=== PATIENT | female | born 1955 | race Caucasian/White ===

== ENCOUNTER → 2018-12-16 08:43 | Outpatient (POV) | payer SELFPAY | PROVIDERS: PCP Dermatology; Visit Provider Dermatology | DX: Z00.00 Encounter for general adult medical examination without abnormal findings (principal) ==

== ENCOUNTER → 2020-01-07 07:52 | Outpatient (CLI) | payer MEDICAID, SELFPAY ==
--- NOTE | 2020-01-07 07:57 | MM_ITS ---
PROCEDURE: MM DIG SCREENING MAMM BI W/CAD Referring Doctor: Liam Sanches Patient Age:64Y CLINICAL INDICATION: SCREENING routine screening mammogram. No hormones. No new complaints. Family history: Mother with breast cancer. Sister x2 breast cancer. Paternal grandmother COMPARISON: No exams were available for comparison TECHNIQUE: Standard CC and MLO images were obtained. R2 CAD reviewed. Bilateral digital breast tomosynthesis included. FINDINGS: Moderate density heterogeneous breast with no prior studies for comparison currently. Slightly denser areas of breast noted superiorly particular on the left . Right breast: Area labeled A: Crush stone appearing calcifications at central breast towards 12 o'clock. This area is labeled A These may be benign fibrocystic calcifications but would benefit from spot view since the prior films from [facility] not become available for comparison Area labeled B: Innumerable tiny fairly singular punctate calcifications scattered throughout fairly large region lateral right breast-the these most likely reflect adenosis... These require enlarging image significantly to appreciate the numerous tiny fainter calcifications that extend posteriorly I recommend patient return for magnification CC and 90 degree views of both areas. Left breast: On today's CC view noted a small focal area of density labeled X central breast towards 12 o'clock. It is somewhat elongated/linear on the CC tomosynthesis image 27. (Measuring just over 8 mm x 2.5 mm) it is not readily apparent on the MLO view thus tend to favor more likely overlapping shadow-but would benefit from spot views (cc and MLO spot views with full 90 degree view left breast) and ultrasound further evaluate when the patient returns IMPRESSION: RIGHT BREAST: Recommend additional magnification views of calcifications at areaA and B Area A: Grouping of crush stone calcification at 12 o'clock; possible fibrocystic calcification but warrant additional images due to some irregular forms Area/region B: Innumerable tiny faint singular calcifications throughout the lateral breast most likely reflect adenosis LEFT BREAST: Small focal area of density towards 12 o'clock on CC views, will benefit from ultrasound and spot views when the patient returns as well Again if the prior films from [place] become available we will be glad to compare them. They may be helpful to determine stability of these areas.. Cautious/diligent approach warranted in this patient with positive family history BI-RAD Category: 0 Need Additional Imaging Evaluation FOLLOW-UP: IMM Immediate Follow-up Recommended (A letter has been sent to the patient regarding results of the study.) Dictated by: Coleman Vasquez MD 01/25/2020 10:15 Coleman Vasquez MD in [place] 01/25/2020 10:15
--- NOTE | 2020-01-07 07:57 | XR_ITS ---
PROCEDURE: XR DEXA AXIAL SKELETON CLINICAL HISTORY: POST MENOPAUSAL COMPARISON: No exams were available for comparison FINDINGS: The right hip BMD is 0.600 with a T-score of -2.2. The left hip BMD is 0.651 with a T-score of -2.4. The lumbar spine BMD is 0.682 with a T-score of -3.3. IMPRESSION: This patient is considered osteoporotic according to the World Health Organization criteria. Fracture risk is high. Treatment is advised. Based on these results a follow-up exam is recommended in 1 year. Dictated by: Estiven Hooker MD 01/08/2020 05:44 Estiven Hooker MD in [place] 01/08/2020 05:44
== END ==
PROVIDERS: PCP Dermatology; Visit Provider Internal Medicine Adolescent Medicine
DX: Z12.31 Encounter for screening mammogram for malignant neoplasm of breast (principal); Z80.3 Family history of malignant neoplasm of breast; Z78.0 Asymptomatic menopausal state; Z13.820 Encounter for screening for osteoporosis
CPT/HCPCS: 77063; 77067; 77080

== ENCOUNTER → 2020-01-19 10:01 | Outpatient (CLI) | payer MEDICAID, SELFPAY ==
[2020-01-19 10:33] LABS: Basophils % 0.6 % (0.1-2.0); Hemoglobin 13.1 g/dL (12.2-16.2); Lymphocytes # 1.3 K/mm3 (0.7-4.5); Lymphocytes % 39.4 % (10-50); Mean Corpuscular HGB Conc 30.6 g/dL (31.8-35.4); Mean Corpuscular Hemoglobin 32.9 pg (27.0-31.2); Mean Corpuscular Volume 107.7 fl (81-99); Mean Platelet Volume 7.9 fl (7.4-10.4); Monocytes # 0.2 K/mm3 (0.1-1.0); Monocytes % 5.2 % (1.7-9.3); Neutrophils # 1.7 K/mm3 (1.8-7.8); Neutrophils % 53.6 % (37.0-80.0); Platelet Count 264 K/mm3 (142-424); Red Blood Count 3.99 M/mm3 (4.20-5.40); Red Cell Distribution Width 11.9 % (11.5-17.5); White Blood Count 3.2 K/mm3 (4.8-10.8)
[2020-01-19 11:08] LABS: Chloride 97 mmol/L (98-107); Potassium 4.3 mmoL/L (3.5-5.1); Sodium 133 mmol/L (136-145)
[2020-01-19 11:11] LABS: Alanine Aminotransferase 27 U/L (12-78); Albumin Level 4.7 g/dl (3.5-5.0); Albumin/Globulin Ratio 1.8 (1.1-1.8); Alkaline Phosphatase 109 U/L (38-126); Anion Gap 8.3 mEq/L (5-15); Aspartate Amino Transferase 46 U/L (14-36); Bilirubin,Total 0.4 mg/dl (0.2-1.3); Blood Urea Nitrogen 17 mg/dl (7-17); Calcium 10.1 mg/dl (8.4-10.2); Carbon Dioxide 32 mmol/L (22.0-30.0); Cholesterol 203 mg/dl (140-200); Estimated Glomerular Filt Rate 125 ml/min (>60); GFR (African American) 151 ML/MIN (>60); Globulin 2.6 g/dL (1.3-3.2); Glucose 97 mg/dl (74-100); Total Protein,Serum 7.3 g/dl (6.3-8.2); Triglycerides 102 mg/dl (30-150); VLDL Cholesterol 20 mg/dL (0-40)
[2020-01-19 11:12] LABS: Chol/HDL Ratio 2.3 (1-3.5); HDL Cholesterol 89 mg/dl (40-60)
[2020-01-19 11:23] LABS: Direct LDL Cholesterol 90.37 mg/dL (100-129)
[2020-01-19 11:42] LABS: Thyroid Stimulating Hormone 0.79 uIU/mL (0.465-4.68)
[2020-01-19 13:59] LABS: Hemoglobin A1C 4.6 % (4.0-6.0)
== END ==
PROVIDERS: Visit Provider Internal Medicine Adolescent Medicine
DX: Z00.00 Encounter for general adult medical examination without abnormal findings (principal); Z78.0 Asymptomatic menopausal state
CPT/HCPCS: 36415; 80053; 80061; 83036; 84443; 85025

== ENCOUNTER → 2020-02-04 14:28 | Outpatient (CLI) | payer MEDICAID, SELFPAY ==
--- NOTE | 2020-02-04 14:33 | US_ITS ---
PROCEDURE: US BREAST LT COMPLETE CLINICAL INDICATION: ABN MAMM COMPARISON: No exams were available for comparison FINDINGS: There is diffusely dense and heterogenic echogenicity consistent with fibrocystic changes. There is a small hypoechoic nodular lesion with hyperechoic center and hypoechoic rim suggestive of an intramammary node position somewhat near the nipple. There is no suspicious solid lesions seen. There are couple normal appearing nodes in the axilla. IMPRESSION: Probable intramammary node along with underlying fibrocystic changes and no additional evaluation is indicated Dictated by: Dr. Pavan Thomas MD 02/10/2020 09:49 Dr. Pavan Thomas MD in [place] 02/10/2020 09:49
--- NOTE | 2020-02-04 14:33 | MM_ITS ---
PROCEDURE: MM DIG MAMM BI DX W/CAD Digital Breast Tomosynthesis Included CLINICAL INDICATION: ABN MAMM COMPARISON: MG MM DIG SCREENING MAMM BI W/CAD from 01/07/2020 TECHNIQUE: Spot compression magnification views were obtained along with 90 degree lateral view of each breast FINDINGS: Again noted is a diffusely dense and heterogenic parenchymal pattern bilaterally. There are multiple scattered microcalcifications right breast which are better seen on the magnification views. These microcalcifications are scattered and there appearance and distribution are most suggestive of sclerosing adenosis. There is no definite focal cluster of suspicious microcalcifications. However recommend the patient return for six-month follow-up right mammogram for continuing evaluation. Spot compress views of the left breast show the area in question to press out with no persistent suspicious lesions seen. IMPRESSION: Probable sclerosing adenosis right breast, negative problem solving views left breast BI-RAD Category: 3 Probably Benign Finding Short Term Follow-up FOLLOW-UP: 6M 6Month Follow-up (A letter has been sent to the patient regarding results of the study.) Dictated by: Dr. Pavan Thomas MD 02/10/2020 09:46 Dr. Pavan Thomas MD in [place] 02/10/2020 09:46
== END ==
PROVIDERS: PCP Internal Medicine Adolescent Medicine; Visit Provider Internal Medicine Adolescent Medicine
DX: R92.8 Other abnormal and inconclusive findings on diagnostic imaging of breast (principal)
CPT/HCPCS: 76641; 77062; 77066; G0279

== ENCOUNTER → 2020-05-03 10:10 | Outpatient (POV) | payer MEDICAID, SELFPAY | PROVIDERS: Visit Provider Dermatology | DX: Z00.00 Encounter for general adult medical examination without abnormal findings (principal) ==

== ENCOUNTER → 2020-05-11 10:22 | Outpatient (CLI) | payer OTHER, SELFPAY ==
--- NOTE | 2020-05-11 10:28 | XR_ITS ---
PROCEDURE: XR LUMBAR SPINE MIN 4V CLINICAL INDICATION: LOW BACK PAIN COMPARISON: No exams were available for comparison FINDINGS: No fracture or dislocation. No lytic or blastic change. There is normal mineralization. There is partial lumbarization of S1. There is degenerative disc disease from L1-S1 mild in nature. There is 7 mm anterolisthesis of L5. There is a mild amount of retained colonic feces. There is minimal lumbar curvature convex right. 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 Other findings:None. IMPRESSION: Degenerative changes as described above, no acute finding Dictated by: Estiven Hooker MD 05/11/2020 12:45 Estiven Hooekr MD in [place] 05/11/2020 12:45
== END ==
PROVIDERS: PCP Internal Medicine Adolescent Medicine; Visit Provider Internal Medicine Adolescent Medicine
DX: M54.5 Low back pain (principal)
CPT/HCPCS: 72110

== ENCOUNTER → 2020-08-05 12:50 | Outpatient (CLI) | payer OTHER, SELFPAY ==
--- NOTE | 2020-08-05 12:56 | MM_ITS ---
PROCEDURE: MM DIG MAMM DX UNILAT RT CAD Digital Breast Tomosynthesis Included CLINICAL INDICATION: ABN MAMM Follow-up abnormal mammogram COMPARISON: MG MM DIG SCREENING MAMM BI W/CAD from 01/07/2020 MG MM DIG MAMM BI DX W/CAD from 02/04/2020 TECHNIQUE: Standard images obtained along with Mag views and tomographic images FINDINGS: Dense fibroglandular tissue. Diffuse granular appearing calcifications which do not appear significantly changed. No malignant appearing mass or malignant-appearing microcalcification. IMPRESSION: Benign findings. Recommend resume screening mammogram December 2020 BI-RAD Category: 2 Benign Finding FOLLOW-UP: 6M 6 Month Follow-up (A letter has been sent to the patient regarding results of the study.) Dictated by: Estiven Hooker MD 08/05/2020 14:38 Estiven Hooker MD in [place] 08/05/2020 14:38
== END ==
PROVIDERS: PCP Internal Medicine Adolescent Medicine; Visit Provider Internal Medicine Adolescent Medicine
DX: R92.8 Other abnormal and inconclusive findings on diagnostic imaging of breast (principal)
CPT/HCPCS: 77061; 77065; G0279

== ENCOUNTER → 2022-04-11 07:45 | Outpatient (CLI) | payer MEDICARE, SELFPAY ==
--- NOTE | 2022-04-11 07:50 | MM_ITS ---
PROCEDURE INFORMATION: Exam: MG Bilateral Screening 3D Mammography Exam date and time: 04/11/2022 7:40 AM Age: 67 years old Clinical indication: Screening mammogram TECHNIQUE: Imaging protocol: Bilateral Screening tomosynthesis and 2D mammography including computer-aided detection (CAD) when performed. COMPARISON: 1. MG MM DIG MAMM DX UNILAT RT CAD 08/05/2020 12:57 PM 2. MG MM DIG MAMM BI DX W/CAD 02/04/2020 2:38 PM 3. MG MM DIG SCREENING MAMM BI W/CAD 01/07/2020 8:08 AM 4. US BREAST LT COMPLETE 02/04/2020 3:06 PM FINDINGS: MAMMOGRAPHY: Breast composition: The breast is heterogeneously dense, which may obscure small masses. Mass: None. Architectural distortion: No new or suspicious architectural distortion. Calcifications: Stable benign-appearing calcifications are present. No new or suspicious cluster of microcalcifications have developed. Asymmetric density: No new or suspicious asymmetric density is present Skin thickening: None. Axillary adenopathy: None. IMPRESSION: No mammographic evidence of malignancy. Recommend annual screening mammography unless otherwise clinically indicated. ASSESSMENT: BI-RADS category 2: Benign
--- NOTE | 2022-04-11 07:50 | XR_ITS ---
FINAL REPORT CLINICAL HISTORY: osteoperosis COMPARISON: 01/07/2020 FINDINGS: DEXA BONE DENSITY AXIAL SKELETON Using L1-4, the bone mineral density of the spine is 0.724 g/cm2, corresponding to T-score of -2.9 with a Z-score of -1.2. Previously measured 0.682 g/cm2, corresponding to T-score of -3.3 with a Z-score of -1.7. Improved. Using the left hip, the bone mineral density of the femoral neck is 0.624 g/cm2, corresponding to a T-score of -2.6 with a Z-score of -1.4. Previously measured 0.651 g/cm2, corresponding to T-score of -2.4 with a Z-score of -1.3. Worse. NOTE: T-score: Standard deviation compared with peak bone mass of young adult mean. *Following the recommendations of the International Society of Bone densitometry, classification of hip BMD is based on the lower of two T-scores; total hip or femoral neck. IMPRESSION: Osteoporosis: Lowest T-score is at or below -2.5. This patient's T-score meets the World Health Organization criteria for osteoporosis. FRAX not reported because: Some T-score for Spine Total or hip Total or femoral neck at or below -2.5. Treated for osteoporosis. Reviewed, Interpreted and Dictated by Leana Marinelli MD Transcribed by Martha Sheikh Authenticated and [facility]
== END ==
PROVIDERS: PCP Internal Medicine Adolescent Medicine; Visit Provider Internal Medicine Adolescent Medicine
DX: Z12.31 Encounter for screening mammogram for malignant neoplasm of breast (principal); M81.0 Age-related osteoporosis without current pathological fracture
CPT/HCPCS: 77063; 77067; 77080

== ENCOUNTER → 2022-04-20 10:07 | Outpatient (CLI) | payer MEDICARE, SELFPAY ==
--- NOTE | 2022-04-20 10:11 | CA_ITS ---
APPROVED REPORT EXAM: Comprehensive 2D, Doppler, and color-flow Echocardiogram Vegetable Washer: Margoth Brooks RT(R) Ht: 5 ft 1 in Wt: 105lbs BSA: 1.44 BP: 112/72 mmHg Indications: SOA, Abn EKG, TEIXEIRA, fatigue, heart racing , dizziness 2D Dimensions LVOT 2.02 cm (M/F) 1.5-2.5 LA Volume 23.60 mL LA Volume Index 16.39 mL/m2 (M/F) 16-34 M-Mode Dimensions RVDd 3.11 cm (0.9-2.6) LA Diam 2.91 cm (1.9-4.0) LVDd 4.83 cm (3.5-5.7) Ao Diam 2.48 cm (2.0-3.7) LVDs 3.50 cm (3.5-5.7) IVSd 0.64 cm (0.6-1.1) PWd 0.64 cm (0.6-1.1) EF (Teich) 53.30% FS 27.50% EDV (Teich) 109.10 mL TAPSE 1.83 (<1.7) ESV (Teich) 50.90 mL LV Diastology E Decel Time 283.00 (160-240 msec) E/A Ratio 1.05 MED E' 10.30 (< 7 cm/sec) E'/MED E' Ratio 8.21 (>14) LAT E' 10.80 (<10 cm/sec) E/LAT E' Ratio 7.83 (>14) Mitral Valve MV A Velocity 81.00 (40-130 cm/s) E/A Ratio 1.05 MV Decel. Time 283.00 (160-240 ms) Tricuspid Valve TR P. Velocity 159.00 cm/s RAP Estimate 10.00 mmHg RVSP 20.10 mmHg Left Ventricle Left atrium is normal size, left ventricle normal size, estimated ejection fraction 55% with no regional wall motion abnormality, diastolic parameters are within normal range. Right Ventricle Right atrium and right ventricular normal size and contractility. Aortic Valve Aortic valve is grossly normal there is no aortic stenosis aortic insufficiency. Mitral Valve Mitral valve is grossly normal, there is trace mitral regurgitation. Tricuspid Valve Tricuspid grossly normal, there is trace tricuspid regurgitation, tricuspid regurgitation jet velocity is inadequate for calculation of the right ventricular systolic pressure. Pulmonic Valve Pulmonic valve is poorly visualized. Great Vessels Aortic root is normal size. Inferior vena cava is normal size with normal inspiratory collapse. Pericardium Small pericardial effusion noted. Conclusion 1. Normal left ventricular size, preserved left ventricular systolic function, estimated ejection fraction 55% with no regional wall motion abnormality, diastolic parameters are within normal range. 2. Trace mitral and tricuspid regurgitation. 3. Small pericardial effusion noted. 4. Inferior vena cava is normal size with normal inspiratory collapse. Electronically signed by : Ramone Estrella MD 04/20/2022 15:48:25
== END ==
PROVIDERS: PCP Internal Medicine Adolescent Medicine; Visit Provider Internal Medicine Adolescent Medicine
DX: R06.09 Other forms of dyspnea (principal); R00.2 Palpitations; R94.31 Abnormal electrocardiogram [ECG] [EKG]
CPT/HCPCS: 93225; 93226; 93306

== ENCOUNTER → 2022-05-07 06:43 | Outpatient (CLI) | payer MEDICARE, SELFPAY ==
--- NOTE | 2022-05-07 | CA_ITS ---
APPROVED REPORT Exam: Exercise Treadmill Technologist: Rachael Sarabia, Ht: 5 ft 1 in Wt: 103 lbs BSA: 1.42 m2 HR: 57 bpm BP: 139/76 mmHg Rhythm: NSR Medical History Medications: Aspirin,,,,, Vit D,,,,, Stress Test Details Test: Julio HR Resting HR: 57 bpm Max Heart Rate (APMHR): 155 bpm Max HR Achieved: 138 bpm Target HR (85% APMHR): 132 bpm % of APMHR: 89 Recovery HR: 90 bpm BP Resting BP: 111/78 mmHg Max BP: 154/79 mmHg Recovery BP: 154.0/79.0 mmHg ECG Resting ECG: NSR Clinical Reason for Termination: Target HR Achieved Exercise duration: 12:00 min Highest Stage Achieved: Exercise capacity: 12.8 METs Stress ECG Conclusion During julio protocol pt walked 12 minutes, 12.8 METS. No CP noted. No arrhythmias noted. <1.5mm ST segment changes. Negative stress. Test Summary REST . . . . . . . Sitting REST . . . . . . . Standing REST 09:42 0.0 1.2 57 . 111/ 78 . . Stage 1 01:00 10.0 1.7 93 . . . . Stage 1 02:00 10.0 1.7 90 . . . . Stage 1 03:00 10.0 1.7 81 . 121/ 82 . . Stage 2 01:00 12.0 2.5 95 . . . . Stage 2 02:00 12.0 2.5 101 . . . . Stage 2 03:00 12.0 2.5 115 . 130/ 85 . . Stage 3 01:00 14.0 3.4 115 . . . . Stage 3 02:00 14.0 3.4 117 . . . . Stage 3 03:00 14.0 3.4 120 . 145/ 90 . . Stage 4 01:00 16.0 4.2 45 . . . . Stage 4 02:00 16.0 4.2 128 . . . . Stage 4 03:00 16.0 4.2 133 . . . Stop exercise at 12:00 RECOVERY 01:00 0.0 0.0 88 . 154/ 79 . . RECOVERY 02:00 0.0 0.0 86 . 154/ 79 . . RECOVERY 03:00 0.0 0.0 76 . 144/ 80 . . RECOVERY 04:00 0.0 0.0 72 . 144/ 80 . . RECOVERY 05:00 0.0 0.0 69 . 144/ 80 . . RECOVERY 05:42 0.0 0.0 77 . 144/ 80 . . Electronically signed by : Ramone Estrella MD 05/07/2022 13:55:25
--- NOTE | 2022-05-07 06:52 | NM_ITS ---
APPROVED REPORT Exam: Nuclear Stress Test Indication: DYSRHYTHMIA, SOA, PALPITATIONS, ABN EKG Patient Location: Outpatient Stress Tech: Rachael Sarabia CT Tech:BHARATH Waters RT (R)(N)(M) Ht: 5 ft 1 in Wt: 103 lbs Bra Size: A HR: 57 bpm BP: 139/76 mmHg BSA: 1.42 m2 TID: 1.14 BMI: 19.4 History: DYSRHYTHMIA, SOA, PALPITATIONS, ABN EKG Procedure: Patient exercised on Eduardo protocol 12:00 minutes and sec, resting heart rate 57 bpm, resting blood pressure 139/76 mmHg, with exercise maximum heart rate achived was 138 bpm which is 104 % of the maximum predicted heart rate and blood pressure was 154/79 mmHg. Test was stopped due to SOA. Patient denied any complaint of chest pain. Patient has Good exercise capacity, achieved 12.8 METs of workload on treadmill, the blood pressure response to exercise was Adequate. Electrocardiogram Resting electrocardiogram shows sinus rhythm, with exercise there is less than 1.[address] segment depression noted from the baseline EKG. The EKG portion of the exercise Myoview is negative for ischemia. Cardiac Stress and Resting SPECT Images: Cardiac Stress and Resting SPECT images were obtained using technetium 99m Myoview 30.3 mCi stress and 10.29 mCi at rest. Gated SPECT analysis of segmental wall motion and calculation of the ejection fraction also done. Prone images were also obtained. Cardiac stress and rest respectively show uniform myocardial activity without segmental perfusion abnormality, computer derived ejection fraction is 52% with no regional wall motion abnormality, right ventricle is normal size and contractility. Conclusion: 1. The EKG portion of the exercise Myoview is negative for ischemia, patient has good exercise capacity achieved 12.8 METs of workload on treadmill, the blood pressure response to exercise was adequate, there was no exercise-induced chest discomfort. 2. No scintigraphic evidence of reversible ischemia seen, computer derived ejection fraction is 52% with no regional wall motion abnormality, right ventricle is normal size and contractility. 3. Normal exercise Myoview study. Electronically signed by : Ramone Estrella MD 05/07/2022 14:05:45
== END ==
PROVIDERS: PCP Internal Medicine Adolescent Medicine; Visit Provider Internal Medicine Adolescent Medicine
DX: R00.2 Palpitations (principal); R06.09 Other forms of dyspnea; R94.31 Abnormal electrocardiogram [ECG] [EKG]
CPT/HCPCS: 78452; 93017; 93270; A9502

== ENCOUNTER → 2022-05-15 12:20 | Outpatient (CLI) | payer MEDICARE, SELFPAY ==
--- NOTE | 2022-05-15 12:26 | CT_ITS ---
FINAL REPORT TECHNIQUE: Axial CT images were performed through the head. Coronal reformatted images were submitted. This study was performed with techniques to keep radiation doses as low as reasonably achievable (ALARA). Individualized dose reduction techniques using automated exposure control or adjustment of mA and/or kV according to the patient's size were employed. CLINICAL HISTORY: CHANGE IN VISION FINDINGS: The ventricles are normal in size. There is no evidence of hemorrhage. There is no mass or edema identified. There is no abnormal extra-axial fluid seen. The sinuses are well aerated. IMPRESSION: No acute intracranial process. Reviewed, Interpreted and Dictated by Ayden Gaston MD Transcribed by Monique Aguero Authenticated and [facility]
== END ==
PROVIDERS: PCP Internal Medicine Adolescent Medicine; Visit Provider Nurse Practitioner Family
DX: H53.9 Unspecified visual disturbance (principal)
CPT/HCPCS: 70450

== ENCOUNTER → 2022-05-17 15:39 | Outpatient (CLI) | payer MEDICARE, SELFPAY ==
--- NOTE | 2022-05-17 16:03 | MR_ITS ---
PROCEDURE INFORMATION: Exam: MR Head Without and With Contrast Exam date and time: 05/17/2022 4:05 PM Age: 67 years old Clinical indication: Pain; Headache; Additional info: TIA 3 days ago. Headache and dizziness x1day TECHNIQUE: Imaging protocol: Magnetic resonance imaging of the head without and with contrast. Contrast material: PROHANCE; Contrast volume: 9 ml; Contrast route: IV; COMPARISON: CT HEAD/BRAIN WO CON 05/15/2022 12:31 PM FINDINGS: Brain: There is no extra-axial collection or intra-axial mass. There are scattered foci of T2/FLAIR white matter hyperintensity, nonspecific but typically small-vessel ischemia in this age group. There is no diffusion restriction there is no abnormal enhancement within the brain. Cerebral ventricles: Normal. No ventriculomegaly. Bones/joints: Unremarkable. Paranasal sinuses: Normal as visualized. No acute sinusitis. Mastoid air cells: Normal as visualized. No mastoid effusion. Orbital cavities: Unremarkable. Soft tissues: Unremarkable. IMPRESSION: No acute findings.
[2022-05-17 16:12] LABS: Blood Urea Nitrogen 15 mg/dl (7-17); Estimated Glomerular Filt Rate 124 ml/min (>60); GFR (African American) 150 ML/MIN (>60)
== END ==
PROVIDERS: Nurse Practitioner Family; PCP Internal Medicine Adolescent Medicine; Visit Provider Internal Medicine Adolescent Medicine
DX: G45.9 Transient cerebral ischemic attack, unspecified (principal); H53.9 Unspecified visual disturbance; R53.83 Other fatigue
CPT/HCPCS: 36415; 70553; 82565; 84520; A9576

== ENCOUNTER → 2022-05-21 10:32 | Outpatient (CLI) | payer MEDICARE, SELFPAY ==
--- NOTE | 2022-05-21 | CA_ITS ---
FINAL REPORT TECHNIQUE: Color Doppler, duplex Doppler and deshpande scale sonography of the bilateral neck arterial vasculature was performed. Velocities were measured in the carotid arteries. Stenosis evaluation based on the validated velocity criteria. CLINICAL HISTORY: Tia with blurred vision of left eye FINDINGS: The peak systolic velocity of the right common carotid artery is 68 cm/s. The peak systolic velocity of the right internal carotid artery is 67 cm/s and end diastolic velocity 21 cm/s. The ICA/CCA ratio is 0.99. No significant plaque is present. The right external carotid artery is patent. The right vertebral artery is patent with antegrade flow. The peak systolic velocity of the left common carotid artery is 105 cm/s. The peak systolic velocity of the left internal carotid artery is 100 cm/s and end diastolic velocity 36 cm/s. The ICA/CCA ratio is 0.98. There is a minimal amount of plaque in the bulb. The left external carotid artery is patent.The left vertebral artery is patent with antegrade flow. IMPRESSION: Less than 50% bilateral carotid stenosis. Bilateral patent vertebral arteries with antegrade flow. If indicated, CTA or MRA could further evaluate. Reviewed, Interpreted and Dictated by Leana Marinelli MD Transcribed by Martha Sheikh Authenticated and [facility]
== END ==
PROVIDERS: PCP Internal Medicine Adolescent Medicine; Visit Provider Internal Medicine Adolescent Medicine
DX: G45.1 Carotid artery syndrome (hemispheric) (principal)
CPT/HCPCS: 93880

== ENCOUNTER → 2022-05-25 08:39 | Outpatient (CLI) | payer MEDICARE, SELFPAY ==
--- NOTE | 2022-05-25 08:44 | CT_ITS ---
FINAL REPORT TECHNIQUE: Thin section axial CT images with coronal reformats were obtained through the neck after the administration of IV contrast. This study was performed with techniques to keep radiation doses as low as reasonably achievable (ALARA). Individualized dose reduction techniques using automated exposure control or adjustment of mA and/or kV according to the patient''s size were employed. CLINICAL HISTORY: WEIGHT LOSS FINDINGS: The nasopharynx and oropharynx are unremarkable. The epiglottis is normal. The larynx is within normal limits. The thyroid gland is homogeneous. The salivary glands are within normal limits and symmetric from right to left. There is no evidence of lymphadenopathy. No mass or fluid collection is identified. The paranasal sinuses and mastoid air cells are clear. No acute osseous abnormality is identified. IMPRESSION: No acute process. Reviewed, Interpreted and Dictated by Leana Marinelli MD Transcribed by Monique Aguero Authenticated and [facility]
--- NOTE | 2022-05-25 08:44 | CT_ITS ---
FINAL REPORT TECHNIQUE: Thin section axial images were obtained through the abdomen after intravenous contrast. Oral contrast was given. Reconstruction images were obtained from the axial data. Exam was performed using dose reduction techniques. CLINICAL HISTORY: WEIGHT LOSS FINDINGS: The liver is homogeneous. The gallbladder is absent. The spleen, adrenal glands, and pancreas are unremarkable. There is no hydronephrosis or solid renal mass. Abdominal GI tract is without acute abnormality. There is no abdominal lymphadenopathy or ascites. The pelvic solid organs are unremarkable. There is a very large amount of retained stool throughout the colon. The uterus is absent. The appendix is not visualized but there are no secondary signs to suggest appendicitis. The pelvic portions of the GI tract are without acute abnormality. There is no pelvic lymphadenopathy or ascites. No acute osseous abnormalities identified. IMPRESSION: Constipation, otherwise no acute abnormality identified. Reviewed, Interpreted and Dictated by Leana Marinelli MD Transcribed by Monique Aguero Authenticated and [facility]
--- NOTE | 2022-05-25 08:44 | CT_ITS ---
FINAL REPORT TECHNIQUE: Thin section axial images were obtained from the thoracic inlet through the upper abdomen after intravenous contrast injection. Reconstruction images were obtained from the axial data. Exam was performed using dose reduction technique. CLINICAL HISTORY: WEIGHT LOSS FINDINGS: There is no mediastinal, hilar, or axillary lymphadenopathy. There is no pleural effusion. There is a small to moderate pericardial effusion. There is evidence of granulomatous disease. The lungs are otherwise clear. No acute osseous abnormality. IMPRESSION: Small to moderate pericardial effusion. Reviewed, Interpreted and Dictated by Leana Marinelli MD Transcribed by Monique Aguero Authenticated and [facility]
== END ==
PROVIDERS: PCP Internal Medicine Adolescent Medicine; Visit Provider Internal Medicine Medical Oncology
DX: D72.819 Decreased white blood cell count, unspecified (principal); R63.4 Abnormal weight loss
CPT/HCPCS: 70491; 71260; 74177; Q9967

== ENCOUNTER → 2022-07-12 15:02 | Outpatient (CLI) | payer MEDICARE, SELFPAY ==
[2022-07-12 16:46] LABS: Basophils % 0.8 % (0.1-2.0); Hematocrit 42.4 % (37.0-47.0); Hemoglobin 13.9 g/dL (12.2-16.2); Lymphocytes % 42.9 % (10-50); Mean Corpuscular HGB Conc 32.8 g/dL (31.8-35.4); Mean Corpuscular Volume 103.6 fl (81-99); Mean Platelet Volume 9.4 fl (7.4-10.4); Monocytes # 0.2 K/mm3 (0.1-1.0); Monocytes % 7.8 % (1.7-9.3); Neutrophils # 1.1 K/mm3 (1.8-7.8); Neutrophils % 47.5 % (37.0-80.0); Platelet Count 186 K/mm3 (142-424); Red Blood Count 4.09 M/mm3 (4.20-5.40); Red Cell Distribution Width 12.1 % (11.5-17.5); White Blood Count 2.4 K/mm3 (4.8-10.8)
[2022-07-12 17:14] LABS: Erythrocyte Sedimentation Rate 13 mm/hr (0-30)
[2022-07-12 18:39] LABS: C-Reactive Protein < 0.3 mg/L (0-4)
== END ==
PROVIDERS: PCP Internal Medicine Adolescent Medicine; Visit Provider Ophthalmology
DX: R51.9 Headache, unspecified (principal)
CPT/HCPCS: 36415; 85025; 85651; 86140

== ENCOUNTER 2023-02-26 08:04 | Outpatient (CLI) | payer MEDICARE, SELFPAY ==
--- NOTE | 2023-02-26 08:12 | MM_ITS ---
PROCEDURE INFORMATION: Exam: MG Bilateral Screening 3D Mammography Exam date and time: 02/26/2023 7:58 AM Age: 67 years old Clinical indication: Screening examination . Family history of breast carcinoma. TECHNIQUE: Imaging protocol: Bilateral Screening tomosynthesis and 2D mammography including computer-aided detection (CAD) when performed. COMPARISON: 1. MG MM DIG SCREENING MAMM BI W/CAD 04/11/2022 7:40 AM 2. MG MM DIG MAMM DX UNILAT RT CAD 08/05/2020 12:57 PM 3. MG MM DIG MAMM BI DX W/CAD 02/04/2020 2:38 PM FINDINGS: MAMMOGRAPHY: Breast composition: The breasts are heterogeneously dense, which may obscure small masses. Mass: No suspicious masses. Architectural distortion: No suspicious distortion. Calcifications: No suspicious calcifications. Asymmetric density: None. Skin thickening: None. Axillary adenopathy: None. IMPRESSION: 1. No mammographic evidence of malignancy. Annual screening is recommended unless otherwise clinically indicated. 2. Given the reported risk factors for this patient, a breast cancer risk assessment may prove useful for further evaluation. ASSESSMENT: BI-RADS Category 1: Negative
--- NOTE | 2023-02-26 08:41 | XR_ITS ---
FINAL REPORT CLINICAL HISTORY: SCREENING FOR OSTEOSPOSIS COMPARISON: March 2022 FINDINGS: Using L1-4, the bone mineral density of the spine is 0.708 g/cm2, corresponding to T-score of -3.1 equivalent to a 2.2% decrease. Using the left hip, the bone mineral density of the femoral neck is 0.598 g/cm2, corresponding to a T-score of -2.8 equivalent to a 4.2% decrease. Using the right hip, the bone mineral density of the femoral neck is 0.596 g/cm2, corresponding to a T-score of -2.3 equivalent to a 5.5% increase. IMPRESSION: Diminished bone mineral density consistent with osteopenia of the right hip and osteoporosis of the left hip and lumbar spine. Reviewed, Interpreted and Dictated by Levy English III, MD Transcribed by Shola Reeder Authenticated and [facility]
== END 2023-02-26 23:59 ==
LOC: RAD 08:05
PROVIDERS: PCP Nurse Practitioner Family; Visit Provider Nurse Practitioner Family
DX: Z12.31 Encounter for screening mammogram for malignant neoplasm of breast (principal); Z13.820 Encounter for screening for osteoporosis; Z78.0 Asymptomatic menopausal state
CPT/HCPCS: 77063; 77067; 77080

== ENCOUNTER 2023-06-27 12:23 | Day surgery (SDC) | payer MEDICARE, SELFPAY ==
[2023-06-26 10:05] VITALS: BMI 18.9
[2023-06-27] VITALS (7 sets, daily range): BP systolic 91–129; BP diastolic 57–69; PULSE 43–68; RESP 18; TEMP 36.1–36.5; O2SAT 98–100; BMI 18.5
[2023-06-27] MEDS: LACTATED RINGERS 1000ML 1,000 ML 25 ML IV (12:54)
--- NOTE | 2023-06-27 12:59 | SUR.PREOP ---
patient stated that she passes out during IV start and patient pasted out during IV start BP 70/40's. Fluids infusing and bed is in trendelenburg BP 98/55. patient stated that she is feeling better now
--- NOTE | 2023-06-27 13:08 | EXP.ANES.CKL ---
[facility] Disclaimer: The information contained in this section may have been updated after the patient was seen, as this information can be updated by other users. Medical History TIA (transient ischemic attack) A-fib History of skin cancer Osteoporosis Vitamin D deficiency Surgical History History of surgery History of partial hysterectomy Hx of tonsillectomy [place] teeth extracted Family History Other Cancer Social History Smoking Status: Never smoker alcohol intake: never substance use type: denies use current occupational status: retired Travel in the last 8 weeks: None caffeine: Yes [facility] Anesthesia Checklist Patient Identification Patient Identification: Verbal (Name & ) Structural Data Admitted From: Home Planned Operative Procedure/s: egd,colonoscopy Consent for Planned Operative Procedure(s) Verified: Yes Airway Assessment Mallampati Score:: Class II C-Spine Mobility Assessed: Yes TMJ Mobility Assessed: Yes Dentition: Good Dentition Neurological Assessment Level of Consciousness: Awake, Alert and Appropriate Anesthesia Plan Anesthesia Risk discussed: Yes Anesthesia Plan: Verified ASA Class: II Anesthesia Type: MAC
--- NOTE | 2023-06-27 13:40 | HMH.SCOPE ---
Procedure: Date: 06/27/23 Patient Date of :: 1955 Procedure Performed:: EGD & dilation Indications:: Dysphagia Performing Provider:: Kyle Fisher MD Referring Provider:: Mayra Fisher APRN Sedation:: Propofol Procedure:: The gastroscope was gently passed through the incisoral orifice into the oral cavity and under direct visualization the esophagus was intubated. The endoscope was passed down the esophagus, through the stomach, and into the duodenum. Color, texture, mucosa, and anatomy of the esophagus, stomach, and duodenum were carefully examined with the scope. Findings:: Oropharynx: normal Esophagus: normal, no evidence of stricture or stenosis, empiric dilation performed with 56F bougie EG Junction: intact at 40 cm Cardia: normal Fundus: normal Body: normal Antrum: normal Duodenal bulb: normal Duodenum (second and third portion): normal Impression: Overall normal EGD, empiric dilation therapy performed Dysphagia symptoms most likely related to anxiety and fear or eating Recommendations:: No contraindications to advancement to regular diet May benefit from speech therapy evaluation and swallowing study if symptoms persists Complications:: None Estimated blood obtained (mL): 0 Colonoscopy Component Colonoscopy Component Was a colonoscopy performed during today's procedure?: No
--- NOTE | 2023-06-27 13:44 | HMH.SCOPE ---
Procedure: Date: 06/27/23 Patient Date of :: 1955 Procedure Performed:: Screening colonoscopy Indications:: Screening for colorectal cancer Performing Provider:: Kyle Fisher MD Referring Provider:: Mayra Fisher APRN Sedation:: Propofol Procedure:: After placing the patient in the left lateral decubitus position, the colonoscopy was gently inserted into the rectum and under direct visualization advanced to the cecum which was identified by transillumination in the right lower quadrant, identification of the ileocecal valve, appendiceal orifice, and cecal strap. Color, texture, mucosa, and anatomy of the colon were carefully examined with the scope. Findings:: Anal canal: normal Rectum: normal Sigmoid colon: normal without polyps or inflammatory changes Descending colon: normal without polyps or inflammatory changes Splenic flexure: normal Transverse colon: normal without polyps or inflammatory changes Hepatic flexure: normal Ascending colon: normal without polyps or inflammatory changes Cecum: normal Terminal ileum: not visualized Impression: Normal colonoscopy Recommendations:: Follow up examination in about TEN years or so, sooner if clinically indicated. Complications:: None Estimated blood obtained (mL): 0 Colonoscopy Component Colonoscopy Component Was a colonoscopy performed during today's procedure?: Yes Recommended follow up colonoscopy of at least 10 years?: Yes
== END 2023-06-27 14:35 | disposition home or self-care (01) ==
PROVIDERS: PCP Nurse Practitioner Family; Visit Provider Internal Medicine Gastroenterology
PROC: 0DJ08ZZ Inspection of Upper Intestinal Tract, Via Natural or Artificial Opening Endoscopic (ICD-10-PCS; CPT 43235; principal; 2023-06-27 13:30)
DX: R13.10 Dysphagia, unspecified (principal); Z12.11 Encounter for screening for malignant neoplasm of colon
CPT/HCPCS: 43248; G0121

== ENCOUNTER 2024-01-14 07:07 | Outpatient (CLI) | payer SELFPAY ==
--- NOTE | 2024-01-14 07:11 | CT_ITS ---
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 A noncontrast coronary calcium scan was performed. A CT attenuation threshold of 130 Hounsfield units (HU) was used for the detection of calcium in contiguous voxels of 1 sq mm in area to be counted as individual lesions. A tube voltage of 120 KVp was used. The patient received no medications prior to the coronary calcium CT. Image Reconstruction Transaxial images were reconstructed at 0.67 mm slide thickness. Data was reviewed interactively on an advanced workstation capable of 2 and 3-dimensional displays in all conventional reconstruction formats, including multiplanar reformations, maximum intensity projections, curved multiplanar reformations, and volume rendered reconstructions. When applicable, selected routine images describing the relevant coronary anatomy and pathology were saved and sent to PACS. Complications None Technical Quality Overall image quality was good. Total DLP (Dose-Length Product) is 161.9 mGy-cm. The reported value represents the total of one or more individual components during the CT acquisition of this date and at this time, and as such, the same value may appear in more than one CT report depending on the interpreting/reporting physicians. COMPARISON None FINDINGS CT Coronary Calcium Scoring LMA (Left Main Artery) = 0 LAD (Left Anterior Descending) = 0 LCX (Left Coronary Circumflex) = 0 RCA (Right Coronary Artery) = 0 Total Calcium Score = 0 using the AJ-130 method. There is mild calcification noted in the aortic valve and the ascending thoracic aorta. IMPRESSION -Coronary artery calcification is absent. -Total Calcium Score (Agatston Score) = 0 using the AJ-130 method. -Mild calcification incidentally noted in the aortic valve and the ascending thoracic aorta. The interpretation of the calcium heart score is based on the following continuum*: 0 = no calcified plaque detected (risk of coronary artery disease is very low ??? less than 5%) 1-10 = calcium detected in extremely minimal levels (risk of coronary diseases is still low ??? less than 10%) 11-100 = mild levels of plaque detected with certainty (mild or minimal narrowing of heart arteries is likely) 101-400 = definite,at least moderate levels of plaque detected (relatively high risk of a heart attack within 3-5 years) >401-999 = extensive levels of plaque detected (high risk of heart attack, high levels of vascular disease are present, high likelihood of at least one significant coronary narrowing) *The calcium heart score quantifies the burden of coronary calcification/plaque in the coronary arteries. The calcium heart score does not evaluate the presence or the burden of non-calcified (i.e. soft) plaque. The coronary and cardiac findings of this Coronary Calcium CT were reviewed, reported, and signed by Rajat Xiao MD (Technology Administrator). Conclusion Electronically signed by : Criss Xiao MD 01/14/2024 12:12:36
== END 2024-01-14 23:59 | disposition home or self-care (01) ==
PROVIDERS: PCP Nurse Practitioner Family; Visit Provider Internal Medicine
DX: I48.0 Paroxysmal atrial fibrillation (principal)
CPT/HCPCS: 75571

== ENCOUNTER 2024-01-28 10:17 | Outpatient (CLI) | payer MEDICARE, SELFPAY ==
--- NOTE | 2024-01-28 10:21 | MM_ITS ---
PROCEDURE INFORMATION: Exam: MG Bilateral Screening 3D Mammography Exam date and time: 01/28/2024 10:26 AM Age: 68 years old Clinical indication: Screening examination TECHNIQUE: Imaging protocol: Bilateral Screening tomosynthesis and 2D mammography including computer-aided detection (CAD) when performed. COMPARISON: 1. MG MM DIG SCREENING MAMM BI W/CAD 02/26/2023 7:58 AM 2. MG MM DIG SCREENING MAMM BI W/CAD 04/11/2022 7:40 AM FINDINGS: MAMMOGRAPHY: Breast composition: The breasts are extremely dense, which lowers the sensitivity of mammography. Mass: None. Architectural distortion: None. Calcifications: No suspicious calcifications. Asymmetric density: None. Skin thickening: None. Axillary adenopathy: None. IMPRESSION: No mammographic evidence of malignancy. Annual screening is recommended unless otherwise clinically indicated. ASSESSMENT: BI-RADS Category 1: Negative.
== END 2024-01-28 23:59 | disposition home or self-care (01) ==
LOC: RAD 10:18
PROVIDERS: PCP Nurse Practitioner Family; Visit Provider Nurse Practitioner Family
DX: Z12.31 Encounter for screening mammogram for malignant neoplasm of breast (principal)
CPT/HCPCS: 77063; 77067